=== PATIENT | male | born 1990 | race African-American/Black ===

== ENCOUNTER 2022-04-06 08:36 | Emergency (ER) | payer MEDICAID ==
[2022-04-06 09:15] VITALS: BP 138/85; TEMP 97.8
[2022-04-06] MEDS ORDERED: TENORMIN 2525 MG/TAB PO (09:57)
[2022-04-06 10:30] VITALS: PULSE 85
== END 2022-04-06 10:30 | disposition home or self-care (01) ==
LOC: COL.ER 08:36
DX: Z76.0 Encounter for issue of repeat prescription (principal); I10 Essential (primary) hypertension; F31.9 Bipolar disorder, unspecified